=== PATIENT | male | born 1980 | race Caucasian/White ===

== ENCOUNTER 2018-12-03 17:01 | Emergency (ER) | payer SELFPAY ==
[~2018-12-03] VITALS: Ht 167.6 cm; Wt 80.3 kg
[2018-12-03 17:06] VITALS: Ht 167.6 cm; Wt 80.3 kg
[2018-12-03 21:02] VITALS: BP 110/62
== END 2018-12-03 21:02 | disposition home or self-care (01) ==
LOC: ED 17:01
DX: S09.8XXA Other specified injuries of head, initial encounter (principal); M54.2 Cervicalgia; M54.9 Dorsalgia, unspecified; M25.78 Osteophyte, vertebrae; F17.210 Nicotine dependence, cigarettes, uncomplicated; Z71.6 Tobacco abuse counseling; Z90.49 Acquired absence of other specified parts of digestive tract; V59.9XXA Occupant (driver) (passenger) of pick-up truck or van injured in unspecified traffic accident, initial encounter; Y93.I9 Activity, other involving external motion; Y92.413 State road as the place of occurrence of the external cause; Y99.8 Other external cause status
CPT/HCPCS: 99406